=== PATIENT | female | born 1965 | race Caucasian/White ===

== ENCOUNTER 2020-05-31 11:55 | Day surgery (SDC) | payer BC ==
[~2020-05-31 11:55] MED LIST: DIPRIVAN 200 MG/20 ML IV ONE; Ketamine HCl 50 MG/ML ONE
[2020-05-31] MEDS ORDERED: Depo-Medrol 40 MG/ML IM ONE (11:56)
[2020-05-31] MEDS ORDERED: Sodium Chloride 0.9(Preservative Free) 10 ML IJ ONE (11:56)
--- NOTE | 2020-05-31 15:12 | XRAY ---
Indication: Right L3-L5 transforaminal MOY. Intraoperative fluoroscopy was provided for 44 seconds. 4 digital spot images submitted for interpretation demonstrates posterior needle tips projecting over the expected right L3 and L4 nerve roots. Small amount of contrast injected for needle tip placement. Correlate with intraoperative findings/report.
--- NOTE | 2020-05-31 16:29 | XRAY ---
44 seconds fluoroscopy time in surgery for right L3-L5 transforaminal MOY.
[2020-05-31] MEDS ORDERED: Lactated Ringers 1,000 ML IV ONE (16:50)
== END 2020-05-31 14:25 | disposition home or self-care (01) ==
LOC: SDC-PAIN 11:55
PROVIDERS: ATTEND Psychiatry & Neurology Pain Medicine
DX: M54.16 Radiculopathy, lumbar region (principal); J44.9 Chronic obstructive pulmonary disease, unspecified; G62.9 Polyneuropathy, unspecified; K21.9 Gastro-esophageal reflux disease without esophagitis; F41.8 Other specified anxiety disorders; Z79.899 Other long term (current) drug therapy
CPT/HCPCS: 64483; 64484; 72100; 77003; J1030; J2704; Q9966

== ENCOUNTER 2020-11-22 14:24 | Day surgery (SDC) | payer BC ==
[2020-11-22] MEDS ORDERED: Sodium Chloride 0.9(Preservative Free) 10 ML IJ ONE (14:25)
[2020-11-22] MEDS ORDERED: CEFAZOLIN 2 GM-D5W BAG IV ONE (14:25)
[2020-11-22] MEDS ORDERED: Xylocaine 1% Vial 30 ML PF IJ ONE (14:25)
[2020-11-22] MEDS ORDERED: Lactated Ringers 1,000 ML IV ONE (16:36)
[2020-11-22] MEDS ORDERED: DIPRIVAN 200 MG/20 ML IV ONE ×2 (17:22→17:46)
[2020-11-22] MEDS ORDERED: SUBLIMAZE 100 MCG/2 ML ONE (18:03)
--- NOTE | 2020-11-23 08:47 | XRAY ---
2 minutes 50 seconds of fluoroscopy was used in surgery for a spinal cord stim trial.
--- NOTE | 2020-11-23 08:48 | XRAY ---
Indication: Spinal cord stimulator trial. Intraoperative fluoroscopy provided for 2 minutes 50 seconds. 2 digital spot images submitted for interpretation demonstrates single epidural spinal lead terminating mid thoracic level. Correlate with intraoperative findings/report.
== END 2020-11-22 18:40 | disposition home or self-care (01) ==
LOC: SDC-PAIN 14:24
PROVIDERS: ATTEND Psychiatry & Neurology Pain Medicine
DX: M54.16 Radiculopathy, lumbar region (principal); G62.9 Polyneuropathy, unspecified; J44.9 Chronic obstructive pulmonary disease, unspecified; K21.9 Gastro-esophageal reflux disease without esophagitis; F41.8 Other specified anxiety disorders; Z79.899 Other long term (current) drug therapy
CPT/HCPCS: 63650; 72100; 77002; C1778; J0690; J2001; J2704; J3010